=== PATIENT | male | born 1970 | race Caucasian/White ===

== ENCOUNTER 2016-10-31 11:22 | Observation (INO) | payer OTHER ==
[~2016-10-31] VITALS: Ht 188 cm; Wt 99.8 kg
[~2016-10-31 11:22] MED LIST: ALDA25TA2 PO; CARD60TA3 PO; CITA40TA4 PO; COMBAER6 INH; DILT30TA PO; FERR325T PO; FOLI1TAB2 PO; FURO40TA2 PO; HYDR-4274 PO; METF500T4 PO; MILKSUS PO; NICO14PA TD; NICOTINE 14 MG/24 HR TRANSDERMAL TD SCH; REGL10TA6 PO; SENN1TAB2 PO; SIMV20TA2 PO; THIA100TA PO; VENL75CA PO
[2016-10-31 11:24] VITALS: BP 128/80
[2016-10-31] MEDS ORDERED: LACT10SO29 PO (11:40)
[2016-10-31] MEDS ORDERED: ONDANSETRON 4MG/2ML VIAL (J2405) IV ONE (12:15)
[2016-10-31] MEDS: MORPHINE 2 MG/ML 1ML SYRINGE IV PRN ×2 (12:56→14:17)
[2016-10-31 13:15] LABS: BASO # 0.1 K/mm3 (0.0-0.2); BASO % 0.7 % (0.0-1.0); EOS # 0.3 K/mm3 (0.0-0.50); EOS % 2.6 % (0.0-3.0); LARGE UNSTAINED CELL # 0.3 K/mm3 (0.0-0.4); LARGE UNSTAINED CELL % 2.5 % (0.0-4.0); LYMPH # 3.5 K/mm3 (1.5-4.5); LYMPH % 31.5 % (24.0-44.0); MEAN CORPUSCULAR HEMOGLOBIN 30.9 pg (27.0-33.0); MEAN CORPUSCULAR HGB CONC 33.6 g/dl (32.0-36.5); MEAN CORPUSCULAR VOLUME 92.1 fl (80.0-96.0); MONO # 0.6 K/mm3 (0.0-0.8); MONO % 5.7 % (0.0-5.0); NEUTROPHILS # 5.9 K/mm3 (1.8-7.7); NEUTROPHILS % 56.8 % (36.0-66.0); PLATELET COUNT, AUTOMATED 174 k/mm3 (150-450); RED CELL DISTRIBUTION WIDTH 14.8 % (11.5-14.5); WHITE BLOOD COUNT 10.4 K/mm3 (4.0-10.0)
[2016-10-31 13:31] LABS: INR 1.31
[2016-10-31 13:42] LABS: ALBUMIN 3.3 GM/DL (3.2-5.2); ALBUMIN/GLOBULIN RATIO 0.72 (1.00-1.93); ALKALINE PHOSPHATASE 123 U/L (45-117); ALT/SGPT 44 U/L (12-78); AMYLASE 41 U/L (25-115); ANION GAP 9 MEQ/L (8-16); AST/SGOT 40 U/L (15-37); BILIRUBIN,DIRECT 0.4 MG/DL (0.0-0.2); BLOOD UREA NITROGEN 8 MG/DL (7-18); CALCIUM LEVEL 9.1 MG/DL (8.5-10.1); CARBON DIOXIDE LEVEL 28 MEQ/L (21-32); CHLORIDE LEVEL 98 MEQ/L (98-107); GLOMERULAR FILTRATION RATE > 60.0 (>60); GLUCOSE, FASTING 306 MG/DL (70-105); POTASSIUM SERUM 3.6 MEQ/L (3.5-5.1); SODIUM LEVEL 135 MEQ/L (136-145); TOTAL PROTEIN 7.9 GM/DL (6.4-8.2)
[2016-10-31] MEDS ORDERED: CITA20TA4 PO (14:34)
[2016-10-31] MEDS ORDERED: FERR324T2 PO (14:40)
[2016-10-31] MEDS ORDERED: FOLI1TAB2 PO (14:40)
[2016-10-31] MEDS ORDERED: SENE8.6T PO (14:40)
[2016-10-31] MEDS ORDERED: SIMV40TA2 PO (14:40)
[2016-10-31] MEDS ORDERED: THIA100TA PO (14:40)
[2016-10-31] MEDS ORDERED: VENL75TA2 PO (14:40)
[2016-10-31] MEDS ORDERED: SPIR50TA2 PO (14:40)
[2016-10-31] MEDS ORDERED: NICO14DI20 TD (14:41)
[2016-10-31] MEDS ORDERED: MILKSUS PO (14:42)
[2016-10-31] MEDS ORDERED: VENL75CA47 PO (14:45)
[2016-10-31] MEDS ORDERED: LORazepam 1 MG TAB PO STA (16:13)
[2016-10-31] MEDS ORDERED: SENOKOT S TAB PO PRN (16:15)
[2016-10-31] MEDS ORDERED: hydrOXYzine 50 MG TAB PO PRN (16:15)
[2016-10-31] MEDS ORDERED: MOM 30ML SUSPENSION UDC PO PRN (16:15)
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
[2016-10-31] MEDS ORDERED: THIAMINE 100 MG TAB PO SCH (21:00)
[2016-10-31] MEDS ORDERED: VENLAFAXINE **XR** 75MG CAPSULE PO SCH (21:00)
[2016-10-31] MEDS ORDERED: CitaloPRAM (CeleXA) 20 MG TAB PO SCH (21:00)
[2016-10-31] MEDS ORDERED: SIMVASTATIN 20 MG TAB PO SCH (21:00)
[2016-10-31] MEDS ORDERED: LACTULOSE 20 GM/30 ML SYRUP UD PO SCH (21:00)
[2016-10-31] MEDS ORDERED: FERROUS SULFATE 325MG TAB PO SCH (21:00)
[2016-11-01] MEDS ORDERED: SIMV20TA2 PO (17:54)
[2016-11-01] MEDS ORDERED: FURO40TA2 PO (17:56)
[2016-11-01] MEDS ORDERED: [UNRECOGNIZED DRUG - CODE] PO (17:56)
== END 2016-10-31 16:15 | disposition left against medical advice (07) ==
LOC: M ED 13:02 → INTOOBSV 15:53 → M ED INP 15:53
PROVIDERS: ADMIT Internal Medicine; ATTEND General Practice
DX: R10.9 Unspecified abdominal pain (principal); K70.31 Alcoholic cirrhosis of liver with ascites; F10.10 Alcohol abuse, uncomplicated; K72.10 Chronic hepatic failure without coma; F32.9 Major depressive disorder, single episode, unspecified; F41.9 Anxiety disorder, unspecified; E78.5 Hyperlipidemia, unspecified; F43.10 Post-traumatic stress disorder, unspecified; E11.9 Type 2 diabetes mellitus without complications; E78.00 Pure hypercholesterolemia, unspecified; F17.210 Nicotine dependence, cigarettes, uncomplicated; Z79.899 Other long term (current) drug therapy; Z79.84 Long term (current) use of oral hypoglycemic drugs
CPT/HCPCS: 80048; 80076; 81001; 82140; 82150; 83605; 83690; 85025; 85610; 85730; 96374; 96375; 96376; 99282; G0378; G0480; J2405

== ENCOUNTER 2016-11-01 13:01 | Emergency (ER) | payer OTHER ==
[~2016-11-01] VITALS: Ht 188 cm; Wt 98.4 kg
[~2016-11-01 13:01] MED LIST changes: +CITA20TA4 PO; +FERR324T2 PO; +LACT10SO29 PO; +NICO14DI20 TD; -NICOTINE 14 MG/24 HR TRANSDERMAL TD SCH; +SENE8.6T PO; +SIMV40TA2 PO; +SPIR50TA2 PO; +VENL75CA47 PO; +VENL75TA2 PO
[2016-11-01 13:02] VITALS: BP 130/78
[2016-11-01] MEDS ORDERED: METOCLOPRAMIDE INJ 10MG/2ML VIAL (J2765) IV ONE (15:00)
[2016-11-01] MEDS ORDERED: NS 1,000 ML IV ONE (15:00)
[2016-11-01] MEDS ORDERED: ISOVUE-370 76% 100ML VIAL (Q9967) As Ordered ONE (15:24)
[2016-11-01 15:39] LABS: BASO % 0.6 % (0.0-1.0); EOS # 0.3 K/mm3 (0.0-0.50); EOS % 3.2 % (0.0-3.0); LARGE UNSTAINED CELL # 0.2 K/mm3 (0.0-0.4); LARGE UNSTAINED CELL % 1.8 % (0.0-4.0); LYMPH # 3.1 K/mm3 (1.5-4.5); LYMPH % 34.6 % (24.0-44.0); MEAN CORPUSCULAR HEMOGLOBIN 31.5 pg (27.0-33.0); MEAN CORPUSCULAR VOLUME 92.8 fl (80.0-96.0); MONO # 0.5 K/mm3 (0.0-0.8); MONO % 5.9 % (0.0-5.0); NEUTROPHILS # 4.9 K/mm3 (1.8-7.7); PLATELET COUNT, AUTOMATED 168 k/mm3 (150-450); RED CELL DISTRIBUTION WIDTH 14.5 % (11.5-14.5)
[2016-11-01 15:42] LABS: CALCIUM OXALATE CRYSTALS MODERATE
[2016-11-01 15:48] LABS: INR 1.23
[2016-11-01 16:00] LABS: METHADONE URINE NEGATIVE (NEGATIVE)
[2016-11-01 16:06] LABS: ALBUMIN 3.2 GM/DL (3.2-5.2); ALBUMIN/GLOBULIN RATIO 0.73 (1.00-1.93); ALKALINE PHOSPHATASE 135 U/L (45-117); ALT/SGPT 46 U/L (12-78); AMYLASE 34 U/L (25-115); ANION GAP 10 MEQ/L (8-16); AST/SGOT 43 U/L (15-37); BILIRUBIN,DIRECT 0.4 MG/DL (0.0-0.2); BLOOD UREA NITROGEN 7 MG/DL (7-18); CALCIUM LEVEL 8.3 MG/DL (8.5-10.1); CARBON DIOXIDE LEVEL 26 MEQ/L (21-32); CHLORIDE LEVEL 100 MEQ/L (98-107); CREATININE FOR GFR 0.69 MG/DL (0.70-1.30); GLOMERULAR FILTRATION RATE > 60.0 (>60); GLUCOSE, FASTING 249 MG/DL (70-105); POTASSIUM SERUM 3.4 MEQ/L (3.5-5.1); SODIUM LEVEL 136 MEQ/L (136-145); TOTAL PROTEIN 7.6 GM/DL (6.4-8.2)
--- NOTE | 2016-11-01 16:06 | REP ---
CT abdomen and pelvis with IV contrast but without bowel contrast: Comparisons are 06/14/2016 and 06/22/2016. Clinically the patient has cirrhosis and complains of abdominal pain. No ascites is identified on the current study. A large volume of ascites identified on the previous studies has resolved. The visualized lung thomas are unremarkable. The liver and spleen are mildly enlarged. No focal hepatic masses are identified. The gallbladder is unremarkable. There is induration of the mesenteric fat along the posterior border of the pancreas extending along the Gerota's fascia on the right on the left with thickening of the right and left fashion. However, these findings are similar to the comparison studies and may be chronic residual fibrotic change secondary to previous pancreatitis, however, recurrent pancreatitis cannot be absolutely disregarded. There is no pancreatic pseudocyst. There is a small cyst medially in the spleen. This is slightly larger than on the comparison studies, today measuring 12 mm.. The adrenals, kidneys and abdominal aorta are unremarkable. There is diffuse circumferential gastric wall thickening, nonspecific, artifact from under distension versus inflammation. No gastric wall ulcers are identified. The abdominal aorta is unremarkable. There is no small bowel distension. There is distension of the entire colon from fecal residue compatible with constipation. Pelvis: The appendix is unremarkable. There is a trace of ascites. There is no adenopathy. Impression: There is a trace of ascites in the pelvis. No other evidence of ascites. Liver and spleen are mildly enlarged. Induration along the posterior margin of the pancreas extending into the right Gerota's fascia , unchanged from prior studies. This could be old fibrotic changes from prior bouts of pancreatitis although recurrent pancreatitis cannot be entirely discounted. No pancreatic pseudocyst. There is circumferential wall thickening of the stomach, nonspecific, gastritis versus artifact from under distension. No gastric ulcers are identified by CT. There is distension of the ascending colon, transverse colon and descending colon with a large volume of fecal residue compatible with constipation. No evidence of bowel obstruction. No hepatic masses are identified. There is no adenopathy. Signed by Danny Lopez MD 11/01/2016 03:58 P
[2016-11-01] MEDS ORDERED: PANTOPRAZOLE 40MG INJ (PROTONIX) (C9113) IV ONE (16:30)
[2016-11-01] MEDS ORDERED: MORPHINE 4 MG/ML 1ML SYRINGE IV ONE (16:45)
[2016-11-01] MEDS ORDERED: SIMV20TA2 PO (17:54)
[2016-11-01] MEDS ORDERED: FURO40TA2 PO (17:56)
[2016-11-01] MEDS ORDERED: [UNRECOGNIZED DRUG - CODE] PO (17:56)
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
== END 2016-11-01 18:53 | disposition left against medical advice (07) ==
LOC: M ED 14:59
DX: K29.21 Alcoholic gastritis with bleeding (principal); K86.0 Alcohol-induced chronic pancreatitis; E86.0 Dehydration; R16.2 Hepatomegaly with splenomegaly, not elsewhere classified; F41.9 Anxiety disorder, unspecified; I10 Essential (primary) hypertension; K74.60 Unspecified cirrhosis of liver; E11.9 Type 2 diabetes mellitus without complications; R18.8 Other ascites; F17.210 Nicotine dependence, cigarettes, uncomplicated; Z79.84 Long term (current) use of oral hypoglycemic drugs; Z79.899 Other long term (current) drug therapy
CPT/HCPCS: 74177; 80048; 80076; 80306; 81001; 82140; 82150; 83605; 83690; 85025; 85610; 85730; 87040; 96374; 96375; 99282; C9113; G0480; J2765; Q9967

== ENCOUNTER 2017-02-10 16:17 | Emergency (ER) | payer OTHER, SELFPAY ==
[~2017-02-10] VITALS: Ht 188 cm; Wt 105.0 kg
[~2017-02-10 16:17] MED LIST changes: +FERR1TAB8 PO; -FERR325T PO; -FOLI1TAB2 PO; +FOLI1TAB4 PO; -HYDR-4274 PO; +HYDR50TA70 PO; -VENL75CA PO; +VENL75CA2 PO; +[UNRECOGNIZED DRUG - CODE] PO
[2017-02-10] MEDS ORDERED: HYDROmorphone HCL 1 MG/ML SYRINGE (J1170) IM ONE (17:15)
--- NOTE | 2017-02-10 18:11 | REP ---
REASON: Hip pain. AP pelvis and AP and lateral views of the hips were obtained. The AP pelvis shows minimal asymmetric hip joint space narrowing without buttressing. There is no prominent marginal osteophytosis. There is no fracture. IMPRESSION: Minimal degenerative changes. TWO VIEWS RIGHT HIP: There is minimal hip joint space narrowing. There is no fracture or destructive osseous lesion. There is no buttressing. TWO VIEWS LEFT HIP: Minimal buttressing is possible with minimal asymmetric hip joint space narrowing. There is no asymmetric hip joint space narrowing. There is no fracture or dislocation. IMPRESSION: Minimal chronic changes as described above. Signed by Balwinder Salinas DO 02/10/2017 07:52 P
[2017-02-10 18:30] VITALS: BP 146/96
[2017-02-10] MEDS ORDERED: HYDR-3713 PO (18:36)
== END 2017-02-10 18:54 | disposition home or self-care (01) ==
LOC: M ED 17:23
DX: M16.0 Bilateral primary osteoarthritis of hip (principal); I10 Essential (primary) hypertension; E78.00 Pure hypercholesterolemia, unspecified; K74.60 Unspecified cirrhosis of liver; E11.9 Type 2 diabetes mellitus without complications; M54.9 Dorsalgia, unspecified; F41.9 Anxiety disorder, unspecified; F32.9 Major depressive disorder, single episode, unspecified; F17.210 Nicotine dependence, cigarettes, uncomplicated; Z79.899 Other long term (current) drug therapy; Z79.84 Long term (current) use of oral hypoglycemic drugs
CPT/HCPCS: 73521; 96372; 99282; J1170

== ENCOUNTER 2017-02-22 20:37 | Emergency (ER) | payer OTHER ==
[~2017-02-22] VITALS: Ht 188 cm; Wt 106.8 kg
[~2017-02-22 20:37] MED LIST changes: +HYDR-3713 PO
[2017-02-22 20:51] VITALS: BP 109/68
== END 2017-02-22 22:08 | disposition left against medical advice (07) ==
LOC: M ED 20:37 → EDBD 20:37 → M ED 22:08
DX: F10.10 Alcohol abuse, uncomplicated (principal); F43.0 Acute stress reaction; F32.9 Major depressive disorder, single episode, unspecified; E11.9 Type 2 diabetes mellitus without complications; I10 Essential (primary) hypertension; K74.60 Unspecified cirrhosis of liver; F17.200 Nicotine dependence, unspecified, uncomplicated

== ENCOUNTER 2017-02-26 16:58 | Emergency (ER) | payer OTHER ==
[~2017-02-26] VITALS: Ht 188 cm; Wt 104.5 kg
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
[2017-02-26] MEDS ORDERED: NORCOTAB PO (19:08)
[2017-02-26] MEDS: NORCO, ANEXSIA 5/325MG TABLET (HYDROcodone/ACETAMINOPHEN) PO ONE (19:14)
[2017-02-26 19:16] VITALS: BP 107/65
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
--- NOTE | 2017-02-27 07:50 | REP ---
Right AC clavicle three views: There is a comminuted fracture of the distal clavicle. The proximal fracture fragment is elevated two shaft widths. The glenohumeral articulation is unremarkable. Signed by Danny Lopez MD 02/27/2017 07:42 A
--- NOTE | 2017-02-27 07:52 | REP ---
PA and lateral chest: Comparison is 12/07/2007. There is a fracture at the lateral aspect of the left seventh rib. There is no pneumothorax, hemothorax or pulmonary contusion. Lung thomas are clear. Cardiac size is normal. The luis armando, mediastinum, and bony thorax are unremarkable except for the left rib fracture. Impression: Left seventh rib fracture. Otherwise, negative PA and lateral chest. Signed by Danny Lopez MD 02/27/2017 07:43 A
== END 2017-02-26 19:25 | disposition home or self-care (01) ==
LOC: M ED 16:58
DX: S22.32XA Fracture of one rib, left side, initial encounter for closed fracture (principal); S02.2XXA Fracture of nasal bones, initial encounter for closed fracture; S42.001A Fracture of unspecified part of right clavicle, initial encounter for closed fracture; S00.83XA Contusion of other part of head, initial encounter; Y04.0XXA Assault by unarmed brawl or fight, initial encounter; Y92.9 Unspecified place or not applicable; Y93.89 Activity, other specified; Y99.8 Other external cause status; J43.9 Emphysema, unspecified; M47.812 Spondylosis without myelopathy or radiculopathy, cervical region; E11.9 Type 2 diabetes mellitus without complications; I10 Essential (primary) hypertension; F41.9 Anxiety disorder, unspecified; F32.9 Major depressive disorder, single episode, unspecified; K74.60 Unspecified cirrhosis of liver; F17.200 Nicotine dependence, unspecified, uncomplicated; Z79.899 Other long term (current) drug therapy

== ENCOUNTER 2017-03-05 05:25 | Emergency (ER) | payer OTHER ==
[~2017-03-05] VITALS: Ht 188 cm; Wt 106.8 kg
[~2017-03-05 05:25] MED LIST changes: +NORCOTAB PO
[2017-03-05] MEDS ORDERED: KETOROLAC 60 MG/2 ML VIAL (J1885) IM ONE (07:30)
[2017-03-05] MEDS ORDERED: MORPHINE 10 MG/ML 1ML VIAL IM ONE (07:30)
[2017-03-05 10:11] LABS: ANION GAP 8 MEQ/L (8-16); BLOOD UREA NITROGEN 6 MG/DL (7-18); CALCIUM LEVEL 8.4 MG/DL (8.5-10.1); CARBON DIOXIDE LEVEL 25 MEQ/L (21-32); CHLORIDE LEVEL 110 MEQ/L (98-107); CREATININE FOR GFR 0.67 MG/DL (0.70-1.30); GLOMERULAR FILTRATION RATE > 60.0 (>60); GLUCOSE, FASTING 290 MG/DL (70-105); POTASSIUM SERUM 3.9 MEQ/L (3.5-5.1); SODIUM LEVEL 143 MEQ/L (136-145)
[2017-03-05] MEDS ORDERED: ISOVUE-370 76% 100ML VIAL (Q9967) As Ordered ONE (10:19)
[2017-03-05] MEDS ORDERED: MORPHINE 4 MG/ML 1ML SYRINGE IV ONE (11:15)
[2017-03-05] MEDS ORDERED: OXYC1TAB23 PO (11:42)
[2017-03-05] MEDS ORDERED: NICO14DI20 TD (11:43)
[2017-03-05 12:32] VITALS: BP 164/92
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
== END 2017-03-05 12:34 | disposition home or self-care (01) ==
LOC: M ED 05:25
DX: S22.41XA Multiple fractures of ribs, right side, initial encounter for closed fracture (principal); X58.XXXA Exposure to other specified factors, initial encounter; Y92.89 Other specified places as the place of occurrence of the external cause; Y93.89 Activity, other specified; Y99.8 Other external cause status; S42.031D Displaced fracture of lateral end of right clavicle, subsequent encounter for fracture with routine healing; Y04.0XXD Assault by unarmed brawl or fight, subsequent encounter; M19.011 Primary osteoarthritis, right shoulder; K70.30 Alcoholic cirrhosis of liver without ascites; F43.10 Post-traumatic stress disorder, unspecified; E11.9 Type 2 diabetes mellitus without complications; J98.4 Other disorders of lung; M17.11 Unilateral primary osteoarthritis, right knee; Z79.899 Other long term (current) drug therapy; Z79.84 Long term (current) use of oral hypoglycemic drugs; F17.210 Nicotine dependence, cigarettes, uncomplicated; F10.21 Alcohol dependence, in remission
CPT/HCPCS: 71010; 71260; 73030; 80048; 96372; 96374; 99284; J1885; Q9967

== ENCOUNTER 2017-03-25 12:32 | Emergency (ER) | payer OTHER ==
[~2017-03-25] VITALS: Ht 188 cm; Wt 104.5 kg
[2017-03-25 12:32] VITALS: BP 137/82
[~2017-03-25 12:32] MED LIST changes: +OXYC1TAB23 PO
== END 2017-03-25 14:10 | disposition left against medical advice (07) ==
LOC: M ED 12:32
DX: R10.9 Unspecified abdominal pain (principal); Z53.21 Procedure and treatment not carried out due to patient leaving prior to being seen by health care provider

== ENCOUNTER 2017-03-25 17:43 | Emergency (ER) | payer OTHER ==
[~2017-03-25] VITALS: Ht 188 cm; Wt 105.5 kg
[2017-03-25] MEDS ORDERED: NS 500 ML IV ONE (19:30)
[2017-03-25 20:12] LABS: BASO # 0.1 K/mm3 (0.0-0.2); BASO % 0.7 % (0.0-1.0); EOS # 0.2 K/mm3 (0.0-0.50); LARGE UNSTAINED CELL # 0.2 K/mm3 (0.0-0.4); LARGE UNSTAINED CELL % 1.7 % (0.0-4.0); LYMPH # 2.9 K/mm3 (1.5-4.5); LYMPH % 26.8 % (24.0-44.0); MEAN CORPUSCULAR HEMOGLOBIN 31.8 pg (27.0-33.0); MEAN CORPUSCULAR HGB CONC 34.8 g/dl (32.0-36.5); MEAN CORPUSCULAR VOLUME 91.3 fl (80.0-96.0); MONO # 0.6 K/mm3 (0.0-0.8); MONO % 5.3 % (0.0-5.0); NEUTROPHILS # 6.8 K/mm3 (1.8-7.7); NEUTROPHILS % 63.6 % (36.0-66.0); PLATELET COUNT, AUTOMATED 231 k/mm3 (150-450); RED CELL DISTRIBUTION WIDTH 14.7 % (11.5-14.5); WHITE BLOOD COUNT 10.8 K/mm3 (4.0-10.0)
[2017-03-25 20:13] VITALS: BP 137/77
[2017-03-25 20:25] LABS: ALBUMIN 3.6 GM/DL (3.2-5.2); ALBUMIN/GLOBULIN RATIO 0.88 (1.00-1.93); ALKALINE PHOSPHATASE 224 U/L (45-117); ALT/SGPT 38 U/L (12-78); AMYLASE 21 U/L (25-115); ANION GAP 14 MEQ/L (8-16); AST/SGOT 59 U/L (15-37); BILIRUBIN,DIRECT 0.8 MG/DL (0.0-0.2); BILIRUBIN,TOTAL 1.7 MG/DL (0.2-1.0); BLOOD UREA NITROGEN 12 MG/DL (7-18); CALCIUM LEVEL 8.4 MG/DL (8.5-10.1); CARBON DIOXIDE LEVEL 25 MEQ/L (21-32); CHLORIDE LEVEL 103 MEQ/L (98-107); CREATININE FOR GFR 0.52 MG/DL (0.70-1.30); GLOMERULAR FILTRATION RATE > 60.0 (>60); GLUCOSE, FASTING 128 MG/DL (70-105); POTASSIUM SERUM 3.6 MEQ/L (3.5-5.1); SODIUM LEVEL 142 MEQ/L (136-145); TOTAL PROTEIN 7.7 GM/DL (6.4-8.2)
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
== END 2017-03-25 20:25 | disposition left against medical advice (07) ==
LOC: M ED 17:43
DX: K74.60 Unspecified cirrhosis of liver (principal); F10.120 Alcohol abuse with intoxication, uncomplicated; I10 Essential (primary) hypertension; E11.9 Type 2 diabetes mellitus without complications; F33.9 Major depressive disorder, recurrent, unspecified; F17.210 Nicotine dependence, cigarettes, uncomplicated; E78.5 Hyperlipidemia, unspecified; Z79.84 Long term (current) use of oral hypoglycemic drugs; Z79.899 Other long term (current) drug therapy; Z87.19 Personal history of other diseases of the digestive system
CPT/HCPCS: 71020; 80048; 80076; 82140; 82150; 83690; 85025; 99282; 99283; G0480

== ENCOUNTER 2017-03-28 15:50 | Emergency (ER) | payer OTHER ==
[~2017-03-28] VITALS: Ht 188 cm; Wt 104.5 kg
[2017-03-28] MEDS ORDERED: ACET30TAB PO (17:14)
[2017-03-28] MEDS ORDERED: ACETAMINOPH W/CODEINE #3 TAB UD PO ONE (17:15)
[2017-03-28 17:24] VITALS: BP 135/88
== END 2017-03-28 17:34 | disposition home or self-care (01) ==
LOC: M ED 15:50
DX: R07.89 Other chest pain (principal); I10 Essential (primary) hypertension; F10.10 Alcohol abuse, uncomplicated; F41.9 Anxiety disorder, unspecified; K74.60 Unspecified cirrhosis of liver; Z86.39 Personal history of other endocrine, nutritional and metabolic disease; Z79.84 Long term (current) use of oral hypoglycemic drugs; Z79.899 Other long term (current) drug therapy

== ENCOUNTER 2017-04-06 14:21 | Emergency (ER) | payer OTHER ==
[~2017-04-06] VITALS: Ht 188 cm; Wt 105.5 kg
[~2017-04-06 14:21] MED LIST changes: +ACET30TAB PO
[2017-04-06] MEDS ORDERED: TYLENOL/CODEINE (14:33)
[2017-04-06] MEDS ORDERED: TRAM50TA2 PO (18:13)
[2017-04-06] MEDS ORDERED: KETOROLAC 60 MG/2 ML VIAL (J1885) IM ONE (18:15)
[2017-04-06] MEDS ORDERED: PERCOCET 5MG/325MG TAB PO ONE (18:15)
[2017-04-06] MEDS ORDERED: CYCL10TA PO (18:26)
[2017-04-06 18:49] VITALS: BP 132/71
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
== END 2017-04-06 19:00 | disposition home or self-care (01) ==
LOC: M ED 14:21
DX: S22.43XD Multiple fractures of ribs, bilateral, subsequent encounter for fracture with routine healing (principal); W01.0XXD Fall on same level from slipping, tripping and stumbling without subsequent striking against object, subsequent encounter; Y92.89 Other specified places as the place of occurrence of the external cause; Z79.899 Other long term (current) drug therapy; Z79.84 Long term (current) use of oral hypoglycemic drugs; F17.210 Nicotine dependence, cigarettes, uncomplicated
CPT/HCPCS: 71111; 96372; 99282; J1885

== ENCOUNTER 2017-06-26 13:05 | Emergency (ER) | payer OTHER ==
[~2017-06-26] VITALS: Ht 188 cm; Wt 99.8 kg
[~2017-06-26 13:05] MED LIST changes: +CYCL10TA PO; +TRAM50TA2 PO; +TYLENOL/CODEINE
[2017-06-26 13:19] VITALS: BP 141/85
[2017-06-26] MEDS ORDERED: HYDR-2807 PO (13:31)
[2017-06-26] MEDS ORDERED: OXAZEPAM 15 MG CAP PO ONE (15:15)
[2017-06-26 15:22] LABS: BASO # 0.1 10^3/uL (0.0-0.2); BASO % 0.9 % (0.0-1.0); EOS # 0.1 10^3/uL (0.0-0.50); EOS % 0.9 % (0.0-3.0); IMMATURE GRANULOCYTE % 0.2 % (0-0); LYMPH # 2.6 10^3/uL (1.5-4.5); LYMPH % 27.7 % (24.0-44.0); MEAN CORPUSCULAR HEMOGLOBIN 30.8 pg (27.0-33.0); MEAN CORPUSCULAR HGB CONC 33.2 g/dl (32.0-36.5); MEAN CORPUSCULAR VOLUME 92.9 fl (80.0-96.0); MONO # 0.8 10^3/uL (0.0-0.8); MONO % 7.9 % (0.0-5.0); NEUTROPHILS # 5.9 10^3/uL (1.8-7.7); NEUTROPHILS % 62.4 % (36.0-66.0); PLATELET COUNT, AUTOMATED 237 10^3/uL (150-450); RED CELL DISTRIBUTION WIDTH 16.8 % (11.5-14.5); WHITE BLOOD COUNT 9.5 10^3/uL (4.0-10.0)
[2017-06-26 15:32] LABS: INR 1.19
[2017-06-26 15:44] LABS: ALBUMIN 3.5 GM/DL (3.2-5.2); ALBUMIN/GLOBULIN RATIO 0.83 (1.00-1.93); ALKALINE PHOSPHATASE 226 U/L (45-117); ALT/SGPT 65 U/L (12-78); ANION GAP 14 MEQ/L (8-16); AST/SGOT 118 U/L (7-37); BILIRUBIN,DIRECT 0.8 MG/DL (0.0-0.2); BILIRUBIN,TOTAL 1.4 MG/DL (0.2-1.0); BLOOD UREA NITROGEN 11 MG/DL (7-18); CALCIUM LEVEL 8.5 MG/DL (8.5-10.1); CARBON DIOXIDE LEVEL 26 MEQ/L (21-32); CHLORIDE LEVEL 104 MEQ/L (98-107); CREATININE FOR GFR 0.57 MG/DL (0.70-1.30); GLOMERULAR FILTRATION RATE > 60.0 (>60); GLUCOSE, FASTING 118 MG/DL (70-105); MAGNESIUM LEVEL 1.8 MG/DL (1.8-2.4); POTASSIUM SERUM 3.8 MEQ/L (3.5-5.1); SODIUM LEVEL 144 MEQ/L (136-145); TOTAL PROTEIN 7.7 GM/DL (6.4-8.2)
== END 2017-06-26 15:56 | disposition left against medical advice (07) ==
LOC: M ED 13:05 → EDBD 13:05 → M ED 15:56
DX: F10.188 Alcohol abuse with other alcohol-induced disorder (principal); K74.60 Unspecified cirrhosis of liver; I10 Essential (primary) hypertension; F11.11 Opioid abuse, in remission; F17.210 Nicotine dependence, cigarettes, uncomplicated; Z79.899 Other long term (current) drug therapy; Z79.84 Long term (current) use of oral hypoglycemic drugs
CPT/HCPCS: 80048; 80076; 82140; 83735; 85025; 85610; 93041; 94760; 99284; G0480

== ENCOUNTER 2017-07-26 02:53 | Emergency (ER) | payer OTHER ==
[2017-07-26 04:19] LABS: HEMATOCRIT 44.1 % (42.0-52.0); HEMOGLOBIN 14.7 g/dl (14.0-18.0); MEAN CORPUSCULAR HEMOGLOBIN 30.4 pg (27.0-33.0); MEAN CORPUSCULAR HGB CONC 33.3 g/dl (32.0-36.5); MEAN CORPUSCULAR VOLUME 91.1 fl (80.0-96.0); PLATELET COUNT, AUTOMATED 242 10^3/uL (150-450); RED BLOOD COUNT 4.84 10^6/uL (4.30-6.10); RED CELL DISTRIBUTION WIDTH 16.6 % (11.5-14.5); WHITE BLOOD COUNT 12.8 10^3/uL (4.0-10.0)
[2017-07-26 04:38] LABS: AMPHETAMINES LEVEL URINE NEGATIVE (NEGATIVE); BARBITURATES URINE NEGATIVE (NEGATIVE); BENZODIAZEPINES URINE POSITIVE (NEGATIVE); CANNABINOIDS URINE NEGATIVE (NEGATIVE); COCAINE METABOLITE URINE NEGATIVE (NEGATIVE); METHADONE URINE NEGATIVE (NEGATIVE); OPIATES URINE NEGATIVE (NEGATIVE); PHENCYCLIDINE URINE NEGATIVE (NEGATIVE)
[2017-07-26 04:39] LABS: ALBUMIN 3.4 GM/DL (3.2-5.2); ALBUMIN/GLOBULIN RATIO 0.72 (1.00-1.93); ALKALINE PHOSPHATASE 143 U/L (45-117); ALT/SGPT 37 U/L (12-78); ANION GAP 9 MEQ/L (8-16); AST/SGOT 44 U/L (7-37); BILIRUBIN,DIRECT 0.2 MG/DL (0.0-0.2); BILIRUBIN,TOTAL 0.4 MG/DL (0.2-1.0); BLOOD UREA NITROGEN 10 MG/DL (7-18); CALCIUM LEVEL 8.7 MG/DL (8.5-10.1); CARBON DIOXIDE LEVEL 30 MEQ/L (21-32); CHLORIDE LEVEL 103 MEQ/L (98-107); CREATININE FOR GFR 0.75 MG/DL (0.70-1.30); ETHYL ALCOHOL (ETHANOL) 0.195 % (0.000-0.010); GLOMERULAR FILTRATION RATE > 60.0 (>60); GLUCOSE, FASTING 222 MG/DL (70-105); POTASSIUM SERUM 3.8 MEQ/L (3.5-5.1); SALICYLATE LEVEL 2.1 MG/DL (5.0-30.0); SODIUM LEVEL 142 MEQ/L (136-145); TOTAL PROTEIN 8.1 GM/DL (6.4-8.2)
[2017-07-26 04:44] LABS: ACETAMINOPHEN LEVEL < 2.0 UG/ML (10.0-30.0)
== END 2017-07-26 09:09 | disposition home or self-care (01) ==
LOC: M ED 02:53
DX: F10.10 Alcohol abuse, uncomplicated (principal); E11.9 Type 2 diabetes mellitus without complications; K74.60 Unspecified cirrhosis of liver; F43.10 Post-traumatic stress disorder, unspecified; Z79.84 Long term (current) use of oral hypoglycemic drugs; Z79.899 Other long term (current) drug therapy
CPT/HCPCS: G0480

== ENCOUNTER → 2018-06-11 | Outpatient (CLI) | payer OTHER | LOC: M OUTALCOH 12:53 | DX: F10.20 Alcohol dependence, uncomplicated (principal) | CPT/HCPCS: H0001 ==

== ENCOUNTER 2018-07-02 13:00 | Outpatient (RCR) | payer OTHER ==
[~2018-07-02 13:00] MED LIST changes: +FOLI1TAB11 PO; -FOLI1TAB4 PO; +HYDR-2807 PO; +MILK120011 PO; -MILKSUS PO; -SPIR50TA2 PO; +SPIR50TA4 PO
[2018-07-04] MEDS ORDERED: PRAZ2CAP PO (23:27)
[2018-07-04] MEDS ORDERED: FERR1TAB8 PO (23:27)
[2018-07-04] MEDS ORDERED: SENN-23 PO (23:27)
[2018-07-04] MEDS ORDERED: VITA50005 PO (23:27)
[2018-07-04] MEDS ORDERED: PANT40TA3 PO (23:27)
[2018-07-04] MEDS ORDERED: NORC10TA21 PO (23:53)
[2018-07-04] MEDS ORDERED: GABA-843 PO (23:53)
[2018-07-04] MEDS ORDERED: PRAZ1CAP PO (23:53)
[2018-07-04] MEDS ORDERED: VENL150C43 PO (23:53)
[2018-07-04] MEDS ORDERED: HYDR-643 PO (23:53)
[2018-07-12] MEDS ORDERED: SPIR-10 PO (15:11)
[2018-07-12] MEDS ORDERED: FURO40TA2 PO (15:11)
== END 2018-07-16 ==
LOC: M OUTALCOH 13:00
PROVIDERS: ATTEND Psychiatry & Neurology Psychiatry
DX: F10.20 Alcohol dependence, uncomplicated (principal); F17.200 Nicotine dependence, unspecified, uncomplicated

== ENCOUNTER 2018-07-04 16:23 | Inpatient (IN) | payer OTHER ==
[2018-07-04] MEDS ORDERED: GASTROGRAFIN SOLUTION 30ML (Q9963) As Ordered (16:31)
[2018-07-04 17:23] LABS: BASO % 0.5 % (0.0-1.0); EOS # 0.1 10^3/uL (0.0-0.50); EOS % 1.3 % (0.0-3.0); HEMATOCRIT 32.3 % (42.0-52.0); HEMOGLOBIN 10.3 g/dl (13.5-17.5); IMMATURE GRANULOCYTE % 0.3 % (0-3.0); LYMPH # 2.4 10^3/uL (1.5-4.5); LYMPH % 30.1 % (24.0-44.0); MEAN CORPUSCULAR HEMOGLOBIN 27.8 pg (27.0-33.0); MEAN CORPUSCULAR HGB CONC 31.9 g/dl (32.0-36.5); MEAN CORPUSCULAR VOLUME 87.3 fl (80.0-96.0); MONO # 0.8 10^3/uL (0.0-0.8); MONO % 10.8 % (0.0-5.0); NEUTROPHILS # 4.5 10^3/uL (1.8-7.7); PLATELET COUNT, AUTOMATED 152 10^3/uL (150-450); RED CELL DISTRIBUTION WIDTH 22.4 % (11.5-14.5); WHITE BLOOD COUNT 7.8 10^3/uL (4.0-10.0)
[2018-07-04] MEDS: ALBUTEROL SULFATE 2.5 MG/0.5 ML INH NEB SOLN NEB (17:43)
[2018-07-04] MEDS: KETOROLAC 30 MG/ML VIAL (J1885) IV (17:47)
[2018-07-04] MEDS: GASTROGRAFIN SOLUTION 30ML PO ×2 (17:47→18:15)
[2018-07-04 18:13] LABS: AMMONIA 48 uMOL/L (<32)
[2018-07-04 18:16] LABS: ALBUMIN 2.2 GM/DL (3.2-5.2); ALBUMIN/GLOBULIN RATIO 0.43 (1.00-1.93); ALKALINE PHOSPHATASE 173 U/L (45-117); ALT/SGPT 28 U/L (12-78); ANION GAP 9 MEQ/L (8-16); AST/SGOT 74 U/L (7-37); BILIRUBIN,DIRECT 1.6 MG/DL (0.0-0.2); BILIRUBIN,TOTAL 2.6 MG/DL (0.2-1.0); BLOOD UREA NITROGEN 5 MG/DL (7-18); CALCIUM LEVEL 7.7 MG/DL (8.5-10.1); CARBON DIOXIDE LEVEL 26 MEQ/L (21-32); CHLORIDE LEVEL 107 MEQ/L (98-107); CREATININE FOR GFR 0.66 MG/DL (0.70-1.30); ETHYL ALCOHOL (ETHANOL) 0.202 % (0.000-0.010); GLOMERULAR FILTRATION RATE > 60.0 (>60); GLUCOSE, FASTING 101 MG/DL (70-100); LIPASE 81 U/L (73-393); NT-PRO BNP 146 PG/ML (<125); POTASSIUM SERUM 3.5 MEQ/L (3.5-5.1); SODIUM LEVEL 142 MEQ/L (136-145); TOTAL PROTEIN 7.3 GM/DL (6.4-8.2)
[2018-07-04] MEDS ORDERED: ISOVUE-370 76% 100ML VIAL (Q9967) As Ordered (19:49)
[2018-07-04] MEDS: MORPHINE 4 MG/ML 1ML VIAL/SYRINGE (J2270) IV ×2 (20:17→22:43)
[2018-07-04] MEDS ORDERED: ONDANSETRON 4MG/2ML VIAL (J2405) IV (23:15)
[2018-07-04] MEDS ORDERED: DEXTROSE 50% 50 ML SYRINGE IV (23:30)
[2018-07-04] MEDS ORDERED: GLUCAGON FOR INJ 1 MG VIAL (J1610) SC (23:30)
[2018-07-04] MEDS ORDERED: GLUCOSE 4 GM CHEW TABLET PO (23:30)
[2018-07-05 00:20] LABS: INR 1.59; PROTHROMBIN TIME 19.2 SECONDS (12.1-14.4)
[2018-07-05 01:22] LABS: BEDSIDE GLUCOSE 93 MG/DL (70-105)
[2018-07-05] MEDS: PRAZOSIN 1 MG CAP PO ×2 (01:42→21:43)
[2018-07-05] MEDS: NORCO, ANEXSIA 5/325MG TABLET (HYDROcodone/ACETAMINOPHEN) PO ×4 (01:43→21:45)
[2018-07-05] MEDS: VENLAFAXINE **XR** 75MG CAPSULE PO ×2 (01:44→21:44)
[2018-07-05] MEDS: THIAMINE 100 MG TAB PO ×3 (01:44→21:44)
[2018-07-05] MEDS: GABAPENTIN 300 MG CAP PO ×2 (01:45→21:45)
[2018-07-05] MEDS: CitaloPRAM (CeleXA) 20 MG TAB PO ×2 (01:45→21:44)
[2018-07-05] MEDS: LevoFLOXacin IV 500 MG in APPROPRIATE DILUENT 1 EA IV (01:45)
[2018-07-05] MEDS: HumaLOG INSULIN (NovoLOG) PER UNIT SC ×5 (01:46→21:00)
[2018-07-05 03:24] LABS: CALCIUM OXALATE CRYSTALS RFX SMALL; KETONE, URINE AUTO RFX NEGATIVE (NEGATIVE); LEUKOCYTE ESTERASE UR AUTO RFX NEGATIVE (NEGATIVE); MUCUS, URINE RFX SMALL (NEGATIVE); NITRITE, URINE AUTO RFX NEGATIVE (NEGATIVE); RBC, URINE AUTO RFX 53 /HPF (0-3); SQUAM EPITHELIAL CELL UR AURFX 1 /HPF (0-6)
[2018-07-05 03:25] LABS: SPECIFIC GRAVITY UR AUTO RFX >1.060 (1.002-1.035); WBC, URINE AUTO RFX 23 /HPF (0-3)
[2018-07-05 04:23] LABS: LACTIC ACID SEPSIS PROTOCOL 3.1 MMOL/L (0.4-2.0)
[2018-07-05] MEDS: MORPHINE 4 MG/ML 1ML VIAL/SYRINGE (J2270) IV ×3 (05:30→17:50)
[2018-07-05] MEDS: HEPARIN SOD (PORCINE) 5000 UNITS/ML VIAL SC ×3 (05:30→21:44)
[2018-07-05 06:17] LABS: HEMATOCRIT 28.1 % (42.0-52.0); MEAN CORPUSCULAR HEMOGLOBIN 27.7 pg (27.0-33.0); MEAN CORPUSCULAR VOLUME 86.5 fl (80.0-96.0); PLATELET COUNT, AUTOMATED 111 10^3/uL (150-450); RED BLOOD COUNT 3.25 10^6/uL (4.30-6.10); RED CELL DISTRIBUTION WIDTH 22.6 % (11.5-14.5)
[2018-07-05 06:37] LABS: ALBUMIN 2.1 GM/DL (3.2-5.2); ALBUMIN/GLOBULIN RATIO 0.45 (1.00-1.93); ALKALINE PHOSPHATASE 145 U/L (45-117); ALT/SGPT 25 U/L (12-78); ANION GAP 9 MEQ/L (8-16); AST/SGOT 71 U/L (7-37); BILIRUBIN,TOTAL 2.2 MG/DL (0.2-1.0); BLOOD UREA NITROGEN 6 MG/DL (7-18); CALCIUM LEVEL 7.9 MG/DL (8.5-10.1); CARBON DIOXIDE LEVEL 26 MEQ/L (21-32); CHLORIDE LEVEL 105 MEQ/L (98-107); CREATININE FOR GFR 0.85 MG/DL (0.70-1.30); GLOMERULAR FILTRATION RATE > 60.0 (>60); GLUCOSE, FASTING 112 MG/DL (70-100); POTASSIUM SERUM 3.6 MEQ/L (3.5-5.1); SODIUM LEVEL 140 MEQ/L (136-145); TOTAL PROTEIN 6.8 GM/DL (6.4-8.2)
[2018-07-05] MEDS: FERROUS SULFATE 325MG TAB PO (08:13)
[2018-07-05] MEDS: SENOKOT S TAB PO (08:13)
[2018-07-05] MEDS: LACTULOSE 20 GM/30 ML SYRUP UD PO (08:13)
[2018-07-05] MEDS: MULTIVITAMINS/MINERALS THERAP 1 TAB PO (08:14)
[2018-07-05] MEDS: PANTOPRAZOLE 40MG TAB (PROTONIX) PO (08:14)
[2018-07-05] MEDS: FOLIC ACID 1 MG TAB PO (08:14)
[2018-07-05] MEDS: INFLUENZA QUADRIVALENT PF VACCINE 0.5ML SYRINGE (90686) IM (08:20)
[2018-07-05 13:09] LABS: BEDSIDE GLUCOSE 119 MG/DL (70-105)
[2018-07-05 15:48] LABS: BF MONONUCLEAR CELL % 90.3 % (0-0); BF POLYMORPHONUCLEAR CELL % 9.7 % (0-0); RBC BODY FLUID < 2 10^3/uL (<2); WBC BODY FLUID 72 /uL (0-10)
[2018-07-05 15:51] LABS: APPEARANCE, BODY FLUID CLEAR (CLEAR); ASCITES FL COLOR PALE YELLOW (COLORLESS); BF DIFF IF INDICATED? YES (NO); SOURCE, BODY FLUID ASCITES
[2018-07-05 15:52] LABS: SPEC. GRAVITY BODY FLUIDS 1.011 (NOT ESTABLISHED)
[2018-07-05 16:07] LABS: SOURCE, BODY FLUID ALBUMIN ASCITES; SOURCE, BODY FLUID GLUCOSE ASCITES; SOURCE, BODY FLUID TOT PROTEIN ASCITES
[2018-07-05 16:56] LABS: TYPE AND SCREEN 1
[2018-07-05 17:01] LABS: BEDSIDE GLUCOSE 114 MG/DL (70-105)
[2018-07-05 20:53] LABS: BEDSIDE GLUCOSE 169 MG/DL (70-105)
[2018-07-06] MEDS: LevoFLOXacin IV 500 MG in APPROPRIATE DILUENT 1 EA IV (00:12)
[2018-07-06] MEDS: HEPARIN SOD (PORCINE) 5000 UNITS/ML VIAL SC (05:21)
[2018-07-06 05:49] LABS: HEMATOCRIT 25.5 % (42.0-52.0); HEMOGLOBIN 8.3 g/dl (13.5-17.5); MEAN CORPUSCULAR HEMOGLOBIN 28.3 pg (27.0-33.0); MEAN CORPUSCULAR HGB CONC 32.5 g/dl (32.0-36.5); RED BLOOD COUNT 2.93 10^6/uL (4.30-6.10); RED CELL DISTRIBUTION WIDTH 22.6 % (11.5-14.5); WHITE BLOOD COUNT 4.7 10^3/uL (4.0-10.0)
[2018-07-06 06:24] LABS: ALBUMIN/GLOBULIN RATIO 0.45 (1.00-1.93); ALKALINE PHOSPHATASE 133 U/L (45-117); ALT/SGPT 21 U/L (12-78); ANION GAP 6 MEQ/L (8-16); AST/SGOT 53 U/L (7-37); BILIRUBIN,TOTAL 1.5 MG/DL (0.2-1.0); BLOOD UREA NITROGEN 8 MG/DL (7-18); CARBON DIOXIDE LEVEL 30 MEQ/L (21-32); CHLORIDE LEVEL 103 MEQ/L (98-107); CREATININE FOR GFR 0.69 MG/DL (0.70-1.30); GLOMERULAR FILTRATION RATE > 60.0 (>60); GLUCOSE, FASTING 133 MG/DL (70-100); POTASSIUM SERUM 3.8 MEQ/L (3.5-5.1); SODIUM LEVEL 139 MEQ/L (136-145); TOTAL PROTEIN 6.4 GM/DL (6.4-8.2)
[2018-07-06 06:27] LABS: IMMATURE PLATELET FRACTION % 3.4 % (0.0-10.9); PLATELET COUNT, AUTOMATED 90 10^3/uL (150-450)
[2018-07-06] MEDS: FOLIC ACID 1 MG TAB PO (08:30)
[2018-07-06] MEDS: THIAMINE 100 MG TAB PO ×2 (08:30→20:21)
[2018-07-06] MEDS: MULTIVITAMINS/MINERALS THERAP 1 TAB PO (08:30)
[2018-07-06] MEDS: PANTOPRAZOLE 40MG TAB (PROTONIX) PO (08:30)
[2018-07-06] MEDS: HumaLOG INSULIN (NovoLOG) PER UNIT SC ×4 (08:30→20:24)
[2018-07-06] MEDS: SENOKOT S TAB PO (08:30)
[2018-07-06] MEDS: LACTULOSE 20 GM/30 ML SYRUP UD PO (08:30)
[2018-07-06] MEDS: FERROUS SULFATE 325MG TAB PO (08:30)
[2018-07-06] MEDS: NORCO, ANEXSIA 5/325MG TABLET (HYDROcodone/ACETAMINOPHEN) PO ×3 (08:31→20:21)
[2018-07-06] MEDS: SPIRONOLACTONE 25 MG TAB PO (09:17)
[2018-07-06] MEDS: FUROSEMIDE 40 MG TAB PO ×2 (09:17→17:10)
[2018-07-06 10:11] LABS: HEPATITIS B SURFACE ANTIGEN NEGATIVE (NEGATIVE)
[2018-07-06 10:38] LABS: HEPATITIS B CORE ANTIBODY IGM NEGATIVE (NEGATIVE)
[2018-07-06 10:38] LABS: HEPATITIS C VIRUS ABY INDEX 0.3 INDEX (<0.8)
[2018-07-06 10:41] LABS: HEPATITIS A ANTIBODY IGM NEGATIVE (NEGATIVE)
[2018-07-06 11:32] LABS: BEDSIDE GLUCOSE 190 MG/DL (70-105)
[2018-07-06] MEDS: LORazepam 2 MG TAB PO ×2 (16:11→22:47)
[2018-07-06 16:47] LABS: BEDSIDE GLUCOSE 109 MG/DL (70-105)
[2018-07-06 20:10] LABS: BEDSIDE GLUCOSE 142 MG/DL (70-105)
[2018-07-06] MEDS: VENLAFAXINE **XR** 75MG CAPSULE PO (20:21)
[2018-07-06] MEDS: GABAPENTIN 300 MG CAP PO (20:21)
[2018-07-06] MEDS: PRAZOSIN 1 MG CAP PO (20:23)
[2018-07-06] MEDS: CitaloPRAM (CeleXA) 20 MG TAB PO (20:24)
[2018-07-07] MEDS: NORCO, ANEXSIA 5/325MG TABLET (HYDROcodone/ACETAMINOPHEN) PO ×2 (01:20→08:02)
[2018-07-07] MEDS: MORPHINE 4 MG/ML 1ML VIAL/SYRINGE (J2270) IV ×4 (03:43→21:46)
[2018-07-07 06:19] LABS: HEMATOCRIT 27.4 % (42.0-52.0); HEMOGLOBIN 8.8 g/dl (13.5-17.5); MEAN CORPUSCULAR HEMOGLOBIN 28.1 pg (27.0-33.0); MEAN CORPUSCULAR HGB CONC 32.1 g/dl (32.0-36.5); MEAN CORPUSCULAR VOLUME 87.5 fl (80.0-96.0); RED BLOOD COUNT 3.13 10^6/uL (4.30-6.10); RED CELL DISTRIBUTION WIDTH 22.7 % (11.5-14.5); WHITE BLOOD COUNT 4.4 10^3/uL (4.0-10.0)
[2018-07-07 06:23] LABS: PLATELET COUNT, AUTOMATED 96 10^3/uL (150-450)
[2018-07-07 06:24] LABS: IMMATURE PLATELET FRACTION % 3.2 % (0.0-10.9)
[2018-07-07 06:49] LABS: ALBUMIN/GLOBULIN RATIO 0.47 (1.00-1.93); ALKALINE PHOSPHATASE 135 U/L (45-117); ALT/SGPT 24 U/L (12-78); ANION GAP 6 MEQ/L (8-16); AST/SGOT 58 U/L (7-37); BILIRUBIN,TOTAL 1.6 MG/DL (0.2-1.0); BLOOD UREA NITROGEN 8 MG/DL (7-18); CALCIUM LEVEL 7.6 MG/DL (8.5-10.1); CARBON DIOXIDE LEVEL 29 MEQ/L (21-32); CHLORIDE LEVEL 103 MEQ/L (98-107); CREATININE FOR GFR 0.59 MG/DL (0.70-1.30); GLOMERULAR FILTRATION RATE > 60.0 (>60); GLUCOSE, FASTING 129 MG/DL (70-100); SODIUM LEVEL 138 MEQ/L (136-145); TOTAL PROTEIN 6.3 GM/DL (6.4-8.2)
[2018-07-07] MEDS: THIAMINE 100 MG TAB PO (08:01)
[2018-07-07] MEDS: HumaLOG INSULIN (NovoLOG) PER UNIT SC ×4 (08:01→19:27)
[2018-07-07] MEDS: LACTULOSE 20 GM/30 ML SYRUP UD PO ×3 (08:01→20:49)
[2018-07-07] MEDS: SENOKOT S TAB PO (08:01)
[2018-07-07] MEDS: SPIRONOLACTONE 25 MG TAB PO (08:02)
[2018-07-07] MEDS: MULTIVITAMINS/MINERALS THERAP 1 TAB PO (08:02)
[2018-07-07] MEDS: FERROUS SULFATE 325MG TAB PO (08:02)
[2018-07-07] MEDS: PANTOPRAZOLE 40MG TAB (PROTONIX) PO (08:02)
[2018-07-07] MEDS: FUROSEMIDE 40 MG TAB PO ×2 (08:02→17:26)
[2018-07-07] MEDS: FOLIC ACID 1 MG TAB PO (08:02)
[2018-07-07 11:47] LABS: BEDSIDE GLUCOSE 154 MG/DL (70-105)
[2018-07-07] MEDS: oxyCODONE 5MG TAB PO ×2 (12:51→20:50)
[2018-07-07] MEDS: POTASSIUM CHLORIDE 10 MEQ SR TABLET PO (12:52)
[2018-07-07 16:29] LABS: BEDSIDE GLUCOSE 110 MG/DL (70-105)
[2018-07-07 19:23] LABS: BEDSIDE GLUCOSE 127 MG/DL (70-105)
[2018-07-07] MEDS: PRAZOSIN 1 MG CAP PO (19:26)
[2018-07-07] MEDS: CitaloPRAM (CeleXA) 20 MG TAB PO (20:50)
[2018-07-07] MEDS: VENLAFAXINE **XR** 75MG CAPSULE PO (20:50)
[2018-07-07] MEDS: GABAPENTIN 300 MG CAP PO (20:50)
[2018-07-08] MEDS: hydrOXYzine 10 MG TAB PO (00:53)
[2018-07-08 07:15] LABS: HEMATOCRIT 28.3 % (42.0-52.0); MEAN CORPUSCULAR HEMOGLOBIN 28.3 pg (27.0-33.0); MEAN CORPUSCULAR HGB CONC 31.8 g/dl (32.0-36.5); PLATELET COUNT, AUTOMATED 109 10^3/uL (150-450); RED BLOOD COUNT 3.18 10^6/uL (4.30-6.10); RED CELL DISTRIBUTION WIDTH 22.9 % (11.5-14.5); WHITE BLOOD COUNT 3.6 10^3/uL (4.0-10.0)
[2018-07-08 07:25] LABS: INR 1.45; PROTHROMBIN TIME 17.8 SECONDS (12.1-14.4)
[2018-07-08 07:26] LABS: PARTIAL THROMBOPLASTIN TIME 32.7 SECONDS (25.4-37.6)
[2018-07-08 07:34] LABS: ALBUMIN 2.2 GM/DL (3.2-5.2); ALKALINE PHOSPHATASE 125 U/L (45-117); ALT/SGPT 26 U/L (12-78); ANION GAP 4 MEQ/L (8-16); AST/SGOT 66 U/L (7-37); BILIRUBIN,TOTAL 1.8 MG/DL (0.2-1.0); BLOOD UREA NITROGEN 10 MG/DL (7-18); CARBON DIOXIDE LEVEL 32 MEQ/L (21-32); CHLORIDE LEVEL 103 MEQ/L (98-107); CREATININE FOR GFR 0.59 MG/DL (0.70-1.30); GLOMERULAR FILTRATION RATE > 60.0 (>60); GLUCOSE, FASTING 120 MG/DL (70-100); POTASSIUM SERUM 3.5 MEQ/L (3.5-5.1); SODIUM LEVEL 139 MEQ/L (136-145); TOTAL PROTEIN 6.6 GM/DL (6.4-8.2)
[2018-07-08] MEDS: LACTULOSE 20 GM/30 ML SYRUP UD PO ×3 (09:01→21:00)
[2018-07-08] MEDS: FERROUS SULFATE 325MG TAB PO (09:01)
[2018-07-08] MEDS: FOLIC ACID 1 MG TAB PO (09:01)
[2018-07-08] MEDS: SPIRONOLACTONE 25 MG TAB PO (09:01)
[2018-07-08] MEDS: PANTOPRAZOLE 40MG TAB (PROTONIX) PO (09:01)
[2018-07-08] MEDS: MULTIVITAMINS/MINERALS THERAP 1 TAB PO (09:01)
[2018-07-08] MEDS: SENOKOT S TAB PO (09:01)
[2018-07-08] MEDS: POTASSIUM CHLORIDE 10 MEQ SR TABLET PO (09:02)
[2018-07-08] MEDS: FUROSEMIDE 40 MG TAB PO ×2 (09:02→17:25)
[2018-07-08] MEDS: HumaLOG INSULIN (NovoLOG) PER UNIT SC ×4 (09:03→20:31)
[2018-07-08] MEDS: oxyCODONE 5MG TAB PO ×3 (09:04→21:38)
[2018-07-08 11:34] LABS: BEDSIDE GLUCOSE 181 MG/DL (70-105)
[2018-07-08 16:35] LABS: BEDSIDE GLUCOSE 95 MG/DL (70-105)
[2018-07-08 20:08] LABS: BEDSIDE GLUCOSE 135 MG/DL (70-105)
[2018-07-08] MEDS: PRAZOSIN 1 MG CAP PO (20:59)
[2018-07-08] MEDS: CitaloPRAM (CeleXA) 20 MG TAB PO (21:00)
[2018-07-08] MEDS: GABAPENTIN 300 MG CAP PO (21:00)
[2018-07-08] MEDS: VENLAFAXINE **XR** 75MG CAPSULE PO (21:00)
[2018-07-09 06:40] LABS: HEMATOCRIT 26.4 % (42.0-52.0); HEMOGLOBIN 8.6 g/dl (13.5-17.5); MEAN CORPUSCULAR HEMOGLOBIN 28.2 pg (27.0-33.0); MEAN CORPUSCULAR HGB CONC 32.6 g/dl (32.0-36.5); MEAN CORPUSCULAR VOLUME 86.6 fl (80.0-96.0); PLATELET COUNT, AUTOMATED 106 10^3/uL (150-450); RED BLOOD COUNT 3.05 10^6/uL (4.30-6.10); RED CELL DISTRIBUTION WIDTH 23.2 % (11.5-14.5); WHITE BLOOD COUNT 3.3 10^3/uL (4.0-10.0)
[2018-07-09 06:54] LABS: ALBUMIN 1.9 GM/DL (3.2-5.2); ALBUMIN/GLOBULIN RATIO 0.45 (1.00-1.93); ALKALINE PHOSPHATASE 115 U/L (45-117); ALT/SGPT 25 U/L (12-78); ANION GAP 4 MEQ/L (8-16); AST/SGOT 60 U/L (7-37); BILIRUBIN,TOTAL 1.1 MG/DL (0.2-1.0); BLOOD UREA NITROGEN 7 MG/DL (7-18); CALCIUM LEVEL 7.7 MG/DL (8.5-10.1); CARBON DIOXIDE LEVEL 31 MEQ/L (21-32); CHLORIDE LEVEL 105 MEQ/L (98-107); CREATININE FOR GFR 0.63 MG/DL (0.70-1.30); GLOMERULAR FILTRATION RATE > 60.0 (>60); GLUCOSE, FASTING 110 MG/DL (70-100); POTASSIUM SERUM 3.5 MEQ/L (3.5-5.1); SODIUM LEVEL 140 MEQ/L (136-145); TOTAL PROTEIN 6.1 GM/DL (6.4-8.2)
[2018-07-09] MEDS: HumaLOG INSULIN (NovoLOG) PER UNIT SC ×4 (08:56→21:00)
[2018-07-09] MEDS: POTASSIUM CHLORIDE 10 MEQ SR TABLET PO (08:57)
[2018-07-09] MEDS: SPIRONOLACTONE 25 MG TAB PO (08:57)
[2018-07-09] MEDS: PANTOPRAZOLE 40MG TAB (PROTONIX) PO (08:57)
[2018-07-09] MEDS: FERROUS SULFATE 325MG TAB PO (08:57)
[2018-07-09] MEDS: FUROSEMIDE 40 MG TAB PO ×2 (08:57→16:35)
[2018-07-09] MEDS: MULTIVITAMINS/MINERALS THERAP 1 TAB PO (08:57)
[2018-07-09] MEDS: SENOKOT S TAB PO (08:57)
[2018-07-09] MEDS: LACTULOSE 20 GM/30 ML SYRUP UD PO ×3 (08:57→21:05)
[2018-07-09] MEDS: FOLIC ACID 1 MG TAB PO (08:57)
[2018-07-09] MEDS: oxyCODONE 5MG TAB PO ×3 (09:02→22:55)
[2018-07-09 11:30] LABS: BEDSIDE GLUCOSE 149 MG/DL (70-105)
[2018-07-09 14:26] LABS: SPEC. GRAVITY BODY FLUIDS 1.011 (NOT ESTABLISHED)
[2018-07-09 14:29] LABS: BF MONONUCLEAR CELL % 80.8 % (0-0); BF POLYMORPHONUCLEAR CELL % 19.2 % (0-0); RBC BODY FLUID < 2 10^3/uL (<2); WBC BODY FLUID 125 /uL (0-10)
[2018-07-09 14:30] LABS: APPEARANCE, BODY FLUID CLEAR (CLEAR); ASCITES FL COLOR YELLOW (COLORLESS); SOURCE, BODY FLUID ASCITES
[2018-07-09 14:31] LABS: BF DIFF IF INDICATED? YES (NO)
[2018-07-09 14:59] LABS: SOURCE, BODY FLUID ALBUMIN ASCITES; SOURCE, BODY FLUID GLUCOSE ASCITES; SOURCE, BODY FLUID TOT PROTEIN ASCITES; TOTAL PROTEIN, BODY FLUID 0.9 G/DL (NOT ESTABLISHED)
[2018-07-09 16:51] LABS: BEDSIDE GLUCOSE 137 MG/DL (70-105)
[2018-07-09 20:37] LABS: TYPE AND SCREEN 1
[2018-07-09] MEDS: CitaloPRAM (CeleXA) 20 MG TAB PO (21:06)
[2018-07-09] MEDS: GABAPENTIN 300 MG CAP PO (21:06)
[2018-07-09] MEDS: VENLAFAXINE **XR** 75MG CAPSULE PO (21:06)
[2018-07-09] MEDS: PRAZOSIN 1 MG CAP PO (21:07)
[2018-07-09 21:08] LABS: BEDSIDE GLUCOSE 152 MG/DL (70-105)
[2018-07-10 05:50] LABS: HEMATOCRIT 26.8 % (42.0-52.0); HEMOGLOBIN 8.5 g/dl (13.5-17.5); MEAN CORPUSCULAR HEMOGLOBIN 28.2 pg (27.0-33.0); MEAN CORPUSCULAR HGB CONC 31.7 g/dl (32.0-36.5); RED BLOOD COUNT 3.01 10^6/uL (4.30-6.10); RED CELL DISTRIBUTION WIDTH 22.7 % (11.5-14.5); WHITE BLOOD COUNT 2.4 10^3/uL (4.0-10.0)
[2018-07-10] MEDS: oxyCODONE 5MG TAB PO ×3 (05:55→20:30)
[2018-07-10 06:13] LABS: ALBUMIN/GLOBULIN RATIO 0.49 (1.00-1.93); ALKALINE PHOSPHATASE 109 U/L (45-117); ALT/SGPT 25 U/L (12-78); ANION GAP 4 MEQ/L (8-16); AST/SGOT 57 U/L (7-37); BLOOD UREA NITROGEN 7 MG/DL (7-18); CALCIUM LEVEL 7.5 MG/DL (8.5-10.1); CARBON DIOXIDE LEVEL 29 MEQ/L (21-32); CHLORIDE LEVEL 105 MEQ/L (98-107); CREATININE FOR GFR 0.59 MG/DL (0.70-1.30); GLOMERULAR FILTRATION RATE > 60.0 (>60); GLUCOSE, FASTING 179 MG/DL (70-100); POTASSIUM SERUM 3.4 MEQ/L (3.5-5.1); SODIUM LEVEL 138 MEQ/L (136-145); TOTAL PROTEIN 6.1 GM/DL (6.4-8.2)
[2018-07-10 06:16] LABS: IMMATURE PLATELET FRACTION % 2.7 % (0.0-10.9); PLATELET COUNT, AUTOMATED 93 10^3/uL (150-450)
[2018-07-10] MEDS: FOLIC ACID 1 MG TAB PO (08:29)
[2018-07-10] MEDS: POTASSIUM CHLORIDE 10 MEQ SR TABLET PO ×2 (08:29→12:18)
[2018-07-10] MEDS: PANTOPRAZOLE 40MG TAB (PROTONIX) PO (08:29)
[2018-07-10] MEDS: FUROSEMIDE 40 MG TAB PO ×2 (08:29→15:36)
[2018-07-10] MEDS: SENOKOT S TAB PO (08:29)
[2018-07-10] MEDS: MULTIVITAMINS/MINERALS THERAP 1 TAB PO (08:29)
[2018-07-10] MEDS: SPIRONOLACTONE 25 MG TAB PO (08:30)
[2018-07-10] MEDS: LACTULOSE 20 GM/30 ML SYRUP UD PO ×3 (08:30→20:30)
[2018-07-10] MEDS: FERROUS SULFATE 325MG TAB PO (08:30)
[2018-07-10] MEDS: HumaLOG INSULIN (NovoLOG) PER UNIT SC ×4 (08:31→20:42)
[2018-07-10] MEDS: MORPHINE 4 MG/ML 1ML VIAL/SYRINGE (J2270) IV ×3 (08:38→15:35)
[2018-07-10 09:15] LABS: CA19-9 TUMOR MARKER,CARBOHYDRA 12.9 U/ML (<35.0)
[2018-07-10 09:15] LABS: ALPHA FETOPROTEIN TUMOR QUANT < 1.3 NG/ML (<8.1); CARCINOEMBRYONIC ANTIGEN 7.2 NG/ML (<2.5)
[2018-07-10 09:30] LABS: IONIZED CALCIUM 4.4 MG/DL (4.5-5.3)
[2018-07-10 12:07] LABS: BEDSIDE GLUCOSE 118 MG/DL (70-105)
[2018-07-10 14:20] LABS: BASO % 0.4 % (0.0-1.0); EOS # 0.1 10^3/uL (0.0-0.50); EOS % 2.5 % (0.0-3.0); HEMOGLOBIN 8.8 g/dl (13.5-17.5); IMMATURE GRANULOCYTE % 0.4 % (0-3.0); LYMPH # 0.9 10^3/uL (1.5-4.5); LYMPH % 35.7 % (24.0-44.0); MEAN CORPUSCULAR HEMOGLOBIN 28.5 pg (27.0-33.0); MEAN CORPUSCULAR HGB CONC 31.4 g/dl (32.0-36.5); MEAN CORPUSCULAR VOLUME 90.6 fl (80.0-96.0); MONO # 0.3 10^3/uL (0.0-0.8); MONO % 11.8 % (0.0-5.0); NEUTROPHILS # 1.2 10^3/uL (1.8-7.7); NEUTROPHILS % 49.2 % (36.0-66.0); PLATELET COUNT, AUTOMATED 105 10^3/uL (150-450); RED BLOOD COUNT 3.09 10^6/uL (4.30-6.10); RED CELL DISTRIBUTION WIDTH 22.7 % (11.5-14.5); WHITE BLOOD COUNT 2.4 10^3/uL (4.0-10.0)
[2018-07-10 14:22] LABS: REASON FOR REVIEW WBC/LEUKEMIA/BLAST; SLIDE REVIEW Report; SOURCE PERIPHERAL SMEAR
[2018-07-10] MEDS: BISACODYL 5 MG TAB PO (15:35)
[2018-07-10 16:36] LABS: BEDSIDE GLUCOSE 122 MG/DL (70-105)
[2018-07-10] MEDS: GOLYTELY SOLN 4000 ML BTL PO (18:30)
[2018-07-10] MEDS: GABAPENTIN 300 MG CAP PO (20:30)
[2018-07-10] MEDS: PRAZOSIN 1 MG CAP PO (20:33)
[2018-07-10] MEDS: VENLAFAXINE **XR** 75MG CAPSULE PO (20:34)
[2018-07-10] MEDS: CitaloPRAM (CeleXA) 20 MG TAB PO (20:34)
[2018-07-10 20:40] LABS: BEDSIDE GLUCOSE 124 MG/DL (70-105)
[2018-07-11] MEDS: D5W/0.45% SODIUM CHLORIDE 1,000 ML IV (01:31)
[2018-07-11] MEDS: MORPHINE 4 MG/ML 1ML VIAL/SYRINGE (J2270) IV ×2 (05:21→12:04)
[2018-07-11 06:36] LABS: HEMATOCRIT 26.8 % (42.0-52.0); HEMOGLOBIN 8.5 g/dl (13.5-17.5); MEAN CORPUSCULAR HEMOGLOBIN 28.2 pg (27.0-33.0); MEAN CORPUSCULAR HGB CONC 31.7 g/dl (32.0-36.5); RED BLOOD COUNT 3.01 10^6/uL (4.30-6.10); RED CELL DISTRIBUTION WIDTH 22.6 % (11.5-14.5); WHITE BLOOD COUNT 2.9 10^3/uL (4.0-10.0)
[2018-07-11 06:41] LABS: PLATELET COUNT, AUTOMATED 96 10^3/uL (150-450)
[2018-07-11 06:43] LABS: IMMATURE PLATELET FRACTION % 2.6 % (0.0-10.9)
[2018-07-11 06:53] LABS: ALBUMIN/GLOBULIN RATIO 0.48 (1.00-1.93); ALKALINE PHOSPHATASE 102 U/L (45-117); ALT/SGPT 27 U/L (12-78); ANION GAP 6 MEQ/L (8-16); AST/SGOT 62 U/L (7-37); BLOOD UREA NITROGEN 6 MG/DL (7-18); CALCIUM LEVEL 7.9 MG/DL (8.5-10.1); CARBON DIOXIDE LEVEL 29 MEQ/L (21-32); CHLORIDE LEVEL 107 MEQ/L (98-107); CREATININE FOR GFR 0.55 MG/DL (0.70-1.30); GLOMERULAR FILTRATION RATE > 60.0 (>60); GLUCOSE, FASTING 114 MG/DL (70-100); POTASSIUM SERUM 3.6 MEQ/L (3.5-5.1); SODIUM LEVEL 142 MEQ/L (136-145); TOTAL PROTEIN 6.2 GM/DL (6.4-8.2)
[2018-07-11] MEDS ORDERED: ISOVUE-370 76% 100ML VIAL (Q9967) As Ordered (07:52)
[2018-07-11] MEDS: FUROSEMIDE 40 MG TAB PO ×2 (08:17→16:08)
[2018-07-11] MEDS: HumaLOG INSULIN (NovoLOG) PER UNIT SC ×4 (08:17→21:00)
[2018-07-11] MEDS: SPIRONOLACTONE 25 MG TAB PO (08:18)
[2018-07-11] MEDS: PANTOPRAZOLE 40MG TAB (PROTONIX) PO (08:18)
[2018-07-11] MEDS: oxyCODONE 5MG TAB PO ×3 (08:19→21:34)
[2018-07-11] MEDS: POTASSIUM CHLORIDE 10 MEQ SR TABLET PO (08:19)
[2018-07-11] MEDS: LACTULOSE 20 GM/30 ML SYRUP UD PO ×3 (08:21→21:00)
[2018-07-11] MEDS: FERROUS SULFATE 325MG TAB PO (08:22)
[2018-07-11] MEDS: SENOKOT S TAB PO (08:22)
[2018-07-11] MEDS: FOLIC ACID 1 MG TAB PO (08:22)
[2018-07-11] MEDS: MULTIVITAMINS/MINERALS THERAP 1 TAB PO (08:22)
[2018-07-11] MEDS: LORazepam 2 MG/ML VIAL (J2060) IV (10:11)
[2018-07-11 11:20] LABS: BEDSIDE GLUCOSE 114 MG/DL (70-105)
[2018-07-11] MEDS ORDERED: PROPOFOL 200 MG/20 ML VIAL As Ordered (13:25)
[2018-07-11] MEDS ORDERED: LIDOCAINE 2% INJ 100 MG/5 ML SYRINGE As Ordered (13:25)
[2018-07-11] MEDS ORDERED: fentaNYL 100 MCG/2 ML INJECTION (J3010) As Ordered (13:25)
[2018-07-11] MEDS: CETACAINE SPRAY 5GM As Ordered (14:26)
[2018-07-11] MEDS ORDERED: PHENYLephrine HCL 500 MCG/5 ML (100MCG/ML) SYRINGE (J2370) As Ordered (14:40)
[2018-07-11] MEDS ORDERED: ePHEDrine SULFATE 25 MG/5 ML(5MG/ML) SYRINGE As Ordered (14:40)
[2018-07-11 16:34] LABS: BEDSIDE GLUCOSE 92 MG/DL (70-105)
[2018-07-11] MEDS: PRAZOSIN 1 MG CAP PO (21:00)
[2018-07-11 21:07] LABS: BEDSIDE GLUCOSE 135 MG/DL (70-105)
[2018-07-11] MEDS: GABAPENTIN 300 MG CAP PO (21:33)
[2018-07-11] MEDS: VENLAFAXINE **XR** 75MG CAPSULE PO (21:33)
[2018-07-11] MEDS: CitaloPRAM (CeleXA) 20 MG TAB PO (21:33)
[2018-07-11] MEDS: hydrOXYzine 10 MG TAB PO (23:10)
[2018-07-12] MEDS: LACTULOSE 20 GM/30 ML SYRUP UD PO (08:14)
[2018-07-12] MEDS: HumaLOG INSULIN (NovoLOG) PER UNIT SC ×2 (08:14→12:00)
[2018-07-12] MEDS: POTASSIUM CHLORIDE 10 MEQ SR TABLET PO (08:15)
[2018-07-12] MEDS: FERROUS SULFATE 325MG TAB PO (08:15)
[2018-07-12] MEDS: SENOKOT S TAB PO (08:15)
[2018-07-12] MEDS: MULTIVITAMINS/MINERALS THERAP 1 TAB PO (08:15)
[2018-07-12] MEDS: oxyCODONE 5MG TAB PO (08:15)
[2018-07-12] MEDS: SPIRONOLACTONE 25 MG TAB PO ×2 (08:15→10:59)
[2018-07-12] MEDS: FUROSEMIDE 40 MG TAB PO (08:15)
[2018-07-12] MEDS: FOLIC ACID 1 MG TAB PO (08:16)
[2018-07-12] MEDS: PANTOPRAZOLE 40MG TAB (PROTONIX) PO (08:16)
[2018-07-12 09:35] LABS: BEDSIDE GLUCOSE 95 MG/DL (70-105)
[2018-07-12 10:51] LABS: HEMATOCRIT 29.5 % (42.0-52.0); HEMOGLOBIN 9.3 g/dl (13.5-17.5); MEAN CORPUSCULAR HEMOGLOBIN 28.1 pg (27.0-33.0); MEAN CORPUSCULAR HGB CONC 31.5 g/dl (32.0-36.5); MEAN CORPUSCULAR VOLUME 89.1 fl (80.0-96.0); PLATELET COUNT, AUTOMATED 120 10^3/uL (150-450); RED BLOOD COUNT 3.31 10^6/uL (4.30-6.10); RED CELL DISTRIBUTION WIDTH 22.7 % (11.5-14.5); WHITE BLOOD COUNT 3.3 10^3/uL (4.0-10.0)
[2018-07-12] MEDS: PROPRANOLOL 20 MG TAB PO (10:59)
[2018-07-12 11:15] LABS: ALBUMIN 2.1 GM/DL (3.2-5.2); ALBUMIN/GLOBULIN RATIO 0.49 (1.00-1.93); ALKALINE PHOSPHATASE 101 U/L (45-117); ALT/SGPT 30 U/L (12-78); ANION GAP 7 MEQ/L (8-16); AST/SGOT 63 U/L (7-37); BILIRUBIN,TOTAL 1.1 MG/DL (0.2-1.0); BLOOD UREA NITROGEN 6 MG/DL (7-18); CALCIUM LEVEL 7.9 MG/DL (8.5-10.1); CARBON DIOXIDE LEVEL 26 MEQ/L (21-32); CHLORIDE LEVEL 107 MEQ/L (98-107); CREATININE FOR GFR 0.68 MG/DL (0.70-1.30); GLOMERULAR FILTRATION RATE > 60.0 (>60); GLUCOSE, FASTING 187 MG/DL (70-100); POTASSIUM SERUM 3.8 MEQ/L (3.5-5.1); SODIUM LEVEL 140 MEQ/L (136-145); TOTAL PROTEIN 6.4 GM/DL (6.4-8.2)
[2018-07-12 11:29] LABS: BEDSIDE GLUCOSE 192 MG/DL (70-105)
[2018-07-13] MEDS ORDERED: SPIRONOLACTONE 50 MG TAB PO (09:00)
== END 2018-07-12 15:00 | disposition left against medical advice (07) | DRG 433 ==
LOC: M MSPAV 07-05 00:40 → M ED 16:23 → M ED INP 23:14
PROVIDERS: Internal Medicine
PROC: 0DJ08ZZ Inspection of Upper Intestinal Tract, Via Natural or Artificial Opening Endoscopic (ICD-10-PCS; 2018-07-11 07:47)
PROC: 0DBM8ZX Excision of Descending Colon, Via Natural or Artificial Opening Endoscopic, Diagnostic (ICD-10-PCS; 2018-07-11 07:47)
PROC: 0DBL8ZX Excision of Transverse Colon, Via Natural or Artificial Opening Endoscopic, Diagnostic (ICD-10-PCS; 2018-07-11 07:47)
PROC: 0DBK7ZX Excision of Ascending Colon, Via Natural or Artificial Opening, Diagnostic (ICD-10-PCS; 2018-07-11 07:47)
PROC: 0W9G3ZX Drainage of Peritoneal Cavity, Percutaneous Approach, Diagnostic (ICD-10-PCS; principal; 2018-07-11 14:10)
DX: K70.31 Alcoholic cirrhosis of liver with ascites (principal); K82.1 Hydrops of gallbladder; E87.2 Acidosis; M84.48XA Pathological fracture, other site, initial encounter for fracture; I85.10 Secondary esophageal varices without bleeding; D61.818 Other pancytopenia; F10.20 Alcohol dependence, uncomplicated; F32.9 Major depressive disorder, single episode, unspecified; F41.9 Anxiety disorder, unspecified; E11.9 Type 2 diabetes mellitus without complications; K42.9 Umbilical hernia without obstruction or gangrene; Z79.899 Other long term (current) drug therapy; E78.5 Hyperlipidemia, unspecified; D50.0 Iron deficiency anemia secondary to blood loss (chronic); E87.6 Hypokalemia; K31.89 Other diseases of stomach and duodenum; D12.4 Benign neoplasm of descending colon; D12.2 Benign neoplasm of ascending colon; D12.3 Benign neoplasm of transverse colon

== ENCOUNTER 2018-07-20 12:43 | Emergency (ER) | payer OTHER ==
[~2018-07-20] VITALS: Ht 188 cm; Wt 114.3 kg
[~2018-07-20 12:43] MED LIST changes: +GABA-843 PO; +HYDR-643 PO; +NORC10TA21 PO; +PANT40TA3 PO; +PRAZ1CAP PO; +PRAZ2CAP PO; +SENN-23 PO; +SPIR-10 PO; +VENL150C43 PO; +VITA50005 PO
[2018-07-20] MEDS ORDERED: LACT10SO3 PO (13:16)
[2018-07-20 13:35] LABS: BASO # 0.1 10^3/uL (0.0-0.2); BASO % 0.8 % (0.0-1.0); EOS # 0.2 10^3/uL (0.0-0.50); EOS % 1.5 % (0.0-3.0); HEMATOCRIT 31.7 % (42.0-52.0); HEMOGLOBIN 10.3 g/dl (13.5-17.5); LYMPH # 2.6 10^3/uL (1.5-4.5); LYMPH % 23.3 % (24.0-44.0); MEAN CORPUSCULAR HEMOGLOBIN 28.4 pg (27.0-33.0); MEAN CORPUSCULAR HGB CONC 32.5 g/dl (32.0-36.5); MEAN CORPUSCULAR VOLUME 87.3 fl (80.0-96.0); MONO # 0.9 10^3/uL (0.0-0.8); MONO % 7.9 % (0.0-5.0); NEUTROPHILS # 7.4 10^3/uL (1.8-7.7); NEUTROPHILS % 66.2 % (36.0-66.0); PLATELET COUNT, AUTOMATED 180 10^3/uL (150-450); RED BLOOD COUNT 3.63 10^6/uL (4.30-6.10); WHITE BLOOD COUNT 11.1 10^3/uL (4.0-10.0)
[2018-07-20 13:47] LABS: INR 1.34; PROTHROMBIN TIME 16.8 SECONDS (12.1-14.4)
[2018-07-20] MEDS ORDERED: oxyCODONE 5MG TAB PO ONE (14:00)
[2018-07-20 14:09] LABS: ALBUMIN 2.5 GM/DL (3.2-5.2); ALT/SGPT 50 U/L (12-78); BILIRUBIN,TOTAL 1.5 MG/DL (0.2-1.0); BLOOD UREA NITROGEN 6 MG/DL (7-18); CALCIUM LEVEL 8.2 MG/DL (8.5-10.1); CARBON DIOXIDE LEVEL 26 MEQ/L (21-32); CHLORIDE LEVEL 104 MEQ/L (98-107); CREATININE FOR GFR 0.48 MG/DL (0.70-1.30); ETHYL ALCOHOL (ETHANOL) 0.262 % (0.000-0.010); GLOMERULAR FILTRATION RATE > 60.0 (>60); GLUCOSE, FASTING 140 MG/DL (70-100); LIPASE 221 U/L (73-393); POTASSIUM SERUM 3.4 MEQ/L (3.5-5.1); SODIUM LEVEL 141 MEQ/L (136-145); TOTAL PROTEIN 7.5 GM/DL (6.4-8.2)
--- NOTE | 2018-07-20 15:43 | REP ---
Four-quadrant abdominal sonographic survey: For ascites. Findings: Moderate to large amount of ascites is seen in all four quadrants. The patient is referred for paracentesis which will proceed. Electronically Signed by Baltazar Sevilla MD 07/20/2018 07:23 P
[2018-07-20 16:37] VITALS: BP 149/82
[2018-07-20] MEDS ORDERED: LACTULOSE 20 GM/30 ML SYRUP UD PO ONE (16:45)
--- NOTE | 2018-07-20 19:13 | REP ---
Ultrasound-guided paracentesis The procedure was performed under the direct supervision of Dr. Sevilla. The risks and benefits of the procedure were explained to the patient and informed consent was obtained. The largest pocket of fluid was localized in the right flank using ultrasound guidance. The skin was prepped and draped in a sterile fashion. 1% lidocaine was used as a local anesthetic. An 8-Welsh multi side-hole catheter was inserted using trocar technique. 5400 ml of yellow fluid was withdrawn and discarded. The patient tolerated the procedure well and there were no immediate complications. After the appropriate amount of monitored convalescence the patient was discharged from the department. Reviewed by BELL Tran 07/20/2018 04:01 P Electronically Signed by Baltazar Sevilla MD 07/20/2018 07:03 P
== END 2018-07-20 17:54 | disposition home or self-care (01) ==
LOC: M ED 12:43 → EDBD 12:43 → CANBEDREQ 17:32 → M ED 17:54
DX: K70.31 Alcoholic cirrhosis of liver with ascites (principal); F10.229 Alcohol dependence with intoxication, unspecified; Y90.1 Blood alcohol level of 20-39 mg/100 ml; Z91.19 Patient's noncompliance with other medical treatment and regimen; E11.9 Type 2 diabetes mellitus without complications; E78.5 Hyperlipidemia, unspecified; F33.9 Major depressive disorder, recurrent, unspecified; F41.9 Anxiety disorder, unspecified; Z79.899 Other long term (current) drug therapy; F17.210 Nicotine dependence, cigarettes, uncomplicated
CPT/HCPCS: 36415; 49083; 76705; 80048; 80076; 82140; 83690; 85025; 85610; 93041; 94760; 99285; G0480

== ENCOUNTER 2018-07-22 12:12 | Emergency (ER) | payer OTHER ==
[~2018-07-22] VITALS: Ht 188 cm; Wt 110.8 kg
[~2018-07-22 12:12] MED LIST changes: +LACT10SO3 PO
[2018-07-22] MEDS ORDERED: PROMETHAZINE INJ 25 MG/ML VIAL (J2550) IV ONE (12:30)
[2018-07-22] MEDS ORDERED: NS 1,000 ML IV SCH (12:30)
[2018-07-22 12:50] LABS: BASO # 0.1 10^3/uL (0.0-0.2); BASO % 0.6 % (0.0-1.0); EOS # 0.2 10^3/uL (0.0-0.50); EOS % 2.1 % (0.0-3.0); HEMATOCRIT 31.6 % (42.0-52.0); HEMOGLOBIN 10.3 g/dl (13.5-17.5); LYMPH # 1.9 10^3/uL (1.5-4.5); LYMPH % 24.6 % (24.0-44.0); MEAN CORPUSCULAR HGB CONC 32.6 g/dl (32.0-36.5); MONO # 0.6 10^3/uL (0.0-0.8); NEUTROPHILS % 64.3 % (36.0-66.0); PLATELET COUNT, AUTOMATED 137 10^3/uL (150-450); RED BLOOD COUNT 3.55 10^6/uL (4.30-6.10); WHITE BLOOD COUNT 7.8 10^3/uL (4.0-10.0)
[2018-07-22 13:42] LABS: ALBUMIN 2.3 GM/DL (3.2-5.2); ALT/SGPT 51 U/L (12-78); BILIRUBIN,TOTAL 1.4 MG/DL (0.2-1.0); BLOOD UREA NITROGEN 6 MG/DL (7-18); CALCIUM LEVEL 7.8 MG/DL (8.5-10.1); CARBON DIOXIDE LEVEL 25 MEQ/L (21-32); CHLORIDE LEVEL 103 MEQ/L (98-107); CREATININE FOR GFR 0.66 MG/DL (0.70-1.30); GLOMERULAR FILTRATION RATE > 60.0 (>60); GLUCOSE, FASTING 139 MG/DL (70-100); LIPASE 195 U/L (73-393); POTASSIUM SERUM 2.8 MEQ/L (3.5-5.1); SODIUM LEVEL 139 MEQ/L (136-145); TOTAL PROTEIN 7.3 GM/DL (6.4-8.2)
[2018-07-22 13:54] LABS: MAGNESIUM LEVEL 1.6 MG/DL (1.8-2.4)
[2018-07-22] MEDS ORDERED: MAGNESIUM OXIDE 400 MG TAB (MAG-OX) PO ONE (14:00)
[2018-07-22] MEDS: POTASSIUM CHLORIDE 10 MEQ SR TABLET PO SCH ×2 (14:06→16:53)
[2018-07-22 14:37] LABS: AMPHETAMINES LEVEL URINE NEGATIVE (NEGATIVE); BARBITURATES URINE NEGATIVE (NEGATIVE); BENZODIAZEPINES URINE POSITIVE (NEGATIVE); CANNABINOIDS URINE NEGATIVE (NEGATIVE); COCAINE METABOLITE URINE NEGATIVE (NEGATIVE); METHADONE URINE NEGATIVE (NEGATIVE); OPIATES URINE NEGATIVE (NEGATIVE); PHENCYCLIDINE URINE NEGATIVE (NEGATIVE)
[2018-07-22] MEDS ORDERED: NORCO, ANEXSIA 5/325MG TABLET (HYDROcodone/ACETAMINOPHEN) PO ONE (16:30)
[2018-07-22 17:15] VITALS: BP 112/60
[2018-07-22] MEDS ORDERED: NORC1TAB4 PO ×2 (17:22→17:25)
--- NOTE | 2018-07-23 06:22 | REP ---
LIMITED ABDOMEN ULTRASOUND: HISTORY: Ascites. COMPARISON: 07/20/2018. Moderate ascites is present in all four quadrants. This appears slightly decreased compared to the previous study where there was a moderate to large amount of ascites in all four quadrants. IMPRESSION: Moderate ascites in all four quadrants, decreased compared to the previous study. Electronically Signed by Johnson Kaur MD 07/23/2018 08:39 A
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
== END 2018-07-22 17:52 | disposition home or self-care (01) ==
LOC: M ED 12:12
DX: F10.129 Alcohol abuse with intoxication, unspecified (principal); Y90.1 Blood alcohol level of 20-39 mg/100 ml; E87.6 Hypokalemia; E83.42 Hypomagnesemia; R18.8 Other ascites; F33.9 Major depressive disorder, recurrent, unspecified; E78.9 Disorder of lipoprotein metabolism, unspecified; Z91.19 Patient's noncompliance with other medical treatment and regimen; Z79.899 Other long term (current) drug therapy
CPT/HCPCS: 36415; 76705; 80048; 80076; 80307; 82140; 83690; 83735; 85025; 93041; 96374; 99285; G0480

== ENCOUNTER 2018-08-29 11:30 | Emergency (ER) | payer OTHER ==
[~2018-08-29 11:30] MED LIST changes: +NORC1TAB4 PO
[2018-08-29] MEDS ORDERED: SODIUM BICARBONATE 8.4% INJ 50 ML SYRINGE IV STA (12:15)
[2018-08-29] MEDS ORDERED: EPINEPHrine 1MG/10ML SYRINGE 1.5IN IV STA ×2 (12:15)
== END 2018-08-29 15:26 | disposition expired ==
LOC: M ED 11:30 → EDBD 11:30 → M ED 15:26
DX: I46.9 Cardiac arrest, cause unspecified (principal); E11.9 Type 2 diabetes mellitus without complications; E78.5 Hyperlipidemia, unspecified; F32.9 Major depressive disorder, single episode, unspecified; F41.9 Anxiety disorder, unspecified; F10.20 Alcohol dependence, uncomplicated; Z82.49 Family history of ischemic heart disease and other diseases of the circulatory system; Z79.899 Other long term (current) drug therapy